=== PATIENT | male | born 1985 | race Caucasian/White ===

== ENCOUNTER 2016-12-03 16:45 | Emergency (ER) | payer MEDICAID, OTHER ==
[2016-12-03 16:52] VITALS: O2SAT 96
--- NOTE | 2016-12-03 17:14 | EDPHY ---
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 He has a airport shuttle driver. He said that there was a dog that bit him. The only the dog was present and took the dog back inside. He thinks that the dog is vaccinated but is not entirely sure. He has minimal pain to the area. He wants to make sure that he does not need any further vaccinations immunizations here. He has never had a tetanus shot. No pain with ambulation. No numbness or tingling. No injuries elsewhere. REVIEW OF SYSTEMS: Ten systems reviewed and are negative unless otherwise noted in the HPI PERTINENT MEDICAL HISTORY: Denies any medical history. No previous tetanus immunizations SOCIAL HISTORY: Nonsmoker. Nondiabetic EXAMINATION General Appearance: Alert, no distress Head: normocephalic, atraumatic Eyes: Pupils equal and round, no conjunctival pallor or injection Cardiovascular: DP pulses are intact symmetrically 2+ Neurological: A&O, nonfocal, normal gait Skin: Warm and dry, no rash. There is puncture wound to the right lateral thigh consistent with dog bite. No bleeding. No purulence. Minimal puncture with no repairable wound. Extremities: Mild tenderness over the right thigh puncture. No bony tenderness. Range of motion is fully intact and symmetric in the right hip, knee and ankle Psychiatric: Mood and affect normal DIFFERENTIAL DIAGNOSES: Including but not limited to dog bite MDM: 5:20 p.m. Dog bite to the right lateral thigh round 4:00 p.m.. The patient is never had a tetanus shot. I recommended that we admit the 1st vaccine. He should follow up with primary care physician for subsequent boosters. Will also start treatment with Augmentin here. Animal control is currently at bedside obtaining is stable. The dog is in custody of the owners and they will verify vaccination status. He will be discharged home with prescription of Augmentin, wound care instructions, and instructions to follow up with his primary care physician. He is comfortable this plan. He will be discharged home stable condition. Return to the emergency department precautions discussed SUPERVISION: This patient was independently evaluated without direct examination by the attending physician. Case was discussed with attending physician. Source: Patient Exam Limitations: No limitations - Personal History Current Tetanus/Diphtheria Vaccine: No - Medical/Surgical History Hx Asthma: No Hx Chronic Respiratory Disease: No Hx Diabetes: No Hx Cardiac Disease: No Hx Renal Disease: No Hx Cirrhosis: No Hx Alcoholism: No Hx HIV/AIDS: No Hx Splenectomy or Spleen Trauma: No Other PMH: denies - Social History Smoking Status: Never smoked Constitutional: Initial Vital Signs Temperature (C) 98.6 F 12/03/16 16:50 Heart Rate 77 12/03/16 16:50 Respiratory Rate 16 12/03/16 16:50 Blood Pressure 154/90 H 12/03/16 16:50 O2 Sat (%) 96 12/03/16 16:50 O2 Delivery Mode Room Air Allergies/Adverse Reactions: No Known Allergies Allergy (Unverified 12/03/16 16:49) Home Medications: Medication Instructions Recorded Amoxicillin/Clavulanate Pot 875 mg PO BID #20 tab 12/03/16 [Augmentin 875 MG TAB (*)] Medical Decision Making - Data Points Medications Given: Discontinued Medications Amoxicillin/Clavulanate Potassium (Augmentin 875mg) 875 mg PO EDNOW ONE PRN Reason: Protocol Stop: 12/03/16 17:22 Last Admin: 12/03/16 17:37 Dose: 875 mg Diphtheria/Tetanus/Acell Pertussis (Boostrix) 0.5 ml IM .ONCE ONE Stop: 12/03/16 17:20 Last Admin: 12/03/16 17:37 Dose: 0.5 ml Departure - Departure Disposition: Home, Routine, Self-Care Clinical Impression: Dog bite of right thigh Qualifiers: Encounter type: initial encounter Qualified Code(s): S71.151A - Open bite, right thigh, initial encounter Condition: Good Instructions: Animal Bite (ED) Additional Instructions: 1. Augmentin as prescribed until completion 2. Follow up with primary care physician 3. Return here for any worsening pain, redness or purulence 4. Follow up with primary care physician to discuss further tetanus immunization boosters Referrals: NONE *PRIMARY CARE P,. [Primary Care Provider] - As per Instructions Josie Ceja MD [Medical Doctor] - As per Instructions Prescriptions: Amoxicillin/Clavulanate Pot [Augmentin 875 MG TAB (*)] 875 mg PO BID #20 tab
[2016-12-03] MEDS ORDERED: TDAP ADULT 0.5 ML INJ (BOOSTRIX) IM ONE (17:19)
[2016-12-03] MEDS ORDERED: AMOXICILLIN/CLAVULANATE POT 875/125 MG TAB PO ONE (17:21)
[2016-12-03 18:06] VITALS: BP 150/90; PULSE 85; RESP 15; TEMP 98.8
== END 2016-12-03 18:06 | disposition home or self-care (01) ==
DX: S71.151A Open bite, right thigh, initial encounter (principal); Z23 Encounter for immunization; W54.0XXA Bitten by dog, initial encounter